=== PATIENT | female | born 1985 | race Caucasian/White ===

== ENCOUNTER 2017-09-07 21:10 | Inpatient (IN) | payer OTHER ==
[~2017-09-07] VITALS: Ht 157.5 cm; Wt 64.9 kg
[2017-09-07] MEDS ORDERED: LR 1,000 ML IV ONE (22:08)
[2017-09-07] MEDS ORDERED: LR 1,000 ML IV SCH (22:08)
[2017-09-07] MEDS ORDERED: FENT2mCg/mL-ROPIVA0.2%/NS EPID 150 ML EP SCH (22:40)
[2017-09-07] MEDS ORDERED: fentaNYL CITRATE/PF 100 MCG/2 ML AMP ONE (22:40)
[2017-09-07 22:42] LABS: BASOPHILS # (AUTO) 0.2 K/uL (0.0-0.2); BASOPHILS % (AUTO) 1.7 % (0.0-2.0); EOSINOPHILS # (AUTO) 0.1 K/uL (0.0-0.4); EOSINOPHILS % (AUTO) 1.3 % (0.0-4.0); HEMATOCRIT 38.3 % (36-48); LYMPHOCYTES # (AUTO) 2.5 K/uL (1.0-5.5); LYMPHOCYTES % (AUTO) 21.7 % (20.5-51.5); MEAN CORPUSCULAR HEMOGLOBIN 29 pg (27-31); MEAN CORPUSCULAR HGB CONC 34 % (32-36); MEAN CORPUSCULAR VOLUME 85 fL (79.0-98.0); MONOCYTES # (AUTO) 0.8 K/uL (0.0-1.0); MONOCYTES % (AUTO) 6.6 % (1.7-9.3); NEUTROPHILS # (AUTO) 7.8 K/uL (1.8-7.7); NEUTROPHILS % (AUTO) 68.7 % (40.0-70.0); PLATELET COUNT (AUTO) 211 K/uL (130-430); RED BLOOD CELL COUNT(AUTO) 4.49 MIL/uL (4.2-6.2); WHITE BLOOD COUNT (AUTO) 11.4 K/uL (4.8-10.8)
[2017-09-07] MEDS ORDERED: OXYTOCIN/NORMAL SALINE 1,000 ML IV ONE (23:24)
[2017-09-08] MEDS ORDERED: OXYTOCIN/NORMAL SALINE 1,000 ML IV ONE (00:31)
[2017-09-08] MEDS ORDERED: OXYTOCIN/NORMAL SALINE 1,000 ML IV SCH (00:31)
[2017-09-08] MEDS ORDERED: OXYCODONE/ACETAMINOPHEN 5-325 TABLET PO PRN ×2 (00:45)
[2017-09-08] MEDS ORDERED: RHO(D) IMMUNE GLOBULIN/MALTOSE 1500 UNITS/1.3 ML (WINHRO) IM PRN (00:45)
[2017-09-08] MEDS ORDERED: GLYCERIN/WITCH HAZEL (TUCKS PADS) TP PRN (00:45)
[2017-09-08] MEDS ORDERED: ANUSOL 1 EA SUPP.RECT (PREPARATION H) RC PRN (00:45)
[2017-09-08] MEDS ORDERED: SENNOSIDES/DOCUSATE SODIUM 1 TAB TABLET(SENOKOT-S) PO PRN (00:45)
[2017-09-08] MEDS ORDERED: DERMOPLAST SPRAY TP PRN (00:45)
[2017-09-08] MEDS ORDERED: DIPH-TET-PERTUS Vaccine 0.5 ML VIAL (ADACEL) I.M. PRN (00:45)
[2017-09-08] MEDS ORDERED: METHYLERGONOVINE MALEATE 0.2 MG TABLET PO PRN (00:45)
[2017-09-08] MEDS ORDERED: LANOLIN 7 GM OINT. TP PRN (00:45)
[2017-09-08] MEDS ORDERED: HYDROcodone/ACETAMIN 5-325 MG TAB (NORCO/ VICODIN) PO PRN (00:45)
[2017-09-08] MEDS ORDERED: DOCUSATE SODIUM 100 MG CAPSULE PO PRN (00:45)
[2017-09-08] MEDS ORDERED: HYDROCORTISONE 0.5%, 28.35 GM TOPICAL CREAM TP PRN (00:45)
[2017-09-08] MEDS ORDERED: MEASLES,MUMPS&RUBELLA VACC/PF 12500 UNIT/0.5 ML VIAL SUBQ PRN (00:45)
[2017-09-08] MEDS: IBUPROFEN 600 MG TABLET PO SCH ×2 (06:00→11:57)
[2017-09-08] MEDS ORDERED: LIDOCAINE MPF 2% 20 MG/1 ML, 5 ML VIAL INH ONE (07:00)
[2017-09-08] MEDS ORDERED: LIDOCAINE MPF 1% 50 MG/5 ML AMP INJ ONE (07:00)
[2017-09-08 07:26] VITALS: BP_SYST 117
[2017-09-08] MEDS ORDERED: TEMAZEPAM 15 MG CAPSULE PO PRN (21:00)
[2017-09-09] MEDS: IBUPROFEN 600 MG TABLET PO SCH ×4 (00:20→17:52)
[2017-09-09 07:02] LABS: BASOPHILS % (AUTO) 0.2 % (0.0-2.0); EOSINOPHILS # (AUTO) 0.2 K/uL (0.0-0.4); EOSINOPHILS % (AUTO) 1.6 % (0.0-4.0); HEMATOCRIT 34.3 % (36-48); LYMPHOCYTES # (AUTO) 2.7 K/uL (1.0-5.5); LYMPHOCYTES % (AUTO) 25.2 % (20.5-51.5); MEAN CORPUSCULAR HEMOGLOBIN 28 pg (27-31); MEAN CORPUSCULAR HGB CONC 32 % (32-36); MEAN CORPUSCULAR VOLUME 87 fL (79.0-98.0); MONOCYTES # (AUTO) 0.5 K/uL (0.0-1.0); NEUTROPHILS # (AUTO) 7.3 K/uL (1.8-7.7); PLATELET COUNT (AUTO) 183 K/uL (130-430); RED BLOOD CELL COUNT(AUTO) 3.95 MIL/uL (4.2-6.2); RED CELL DISTRIBUTION WIDTH 12.2 % (9.0-15.0); WHITE BLOOD COUNT (AUTO) 10.7 K/uL (4.8-10.8)
[2017-09-10] MEDS: IBUPROFEN 600 MG TABLET PO SCH ×2 (00:07→05:47)
== END 2017-09-10 13:07 | disposition home or self-care (01) | DRG 775 ==
LOC: SPU 21:10 → OBSVTOIN 22:00
PROVIDERS: ADMIT Specialist; ATTEND Specialist
PROC: 10E0XZZ Delivery of Products of Conception, External Approach (ICD-10-PCS; principal; 2017-09-08)
PROC: 3E0R3BZ Introduction of Anesthetic Agent into Spinal Canal, Percutaneous Approach (ICD-10-PCS; 2017-09-08)
PROC: 00HU33Z Insertion of Infusion Device into Spinal Canal, Percutaneous Approach (ICD-10-PCS; 2017-09-08)
DX: O60.14X0 Preterm labor third trimester with preterm delivery third trimester, not applicable or unspecified (principal); Z37.0 Single live birth; Z3A.39 39 weeks gestation of pregnancy
CPT/HCPCS: 36415; 81002-TC; 85025; 86592; 86886; 86900; 86901; 90715; G0378; J2001; J2590; J3010; J7120

== ENCOUNTER 2020-10-14 20:37 | Observation (INO) | payer OTHER ==
[2020-10-14] MEDS ORDERED: NACL 0.9% 1,000 ML IV ONE (21:00)
[2020-10-14] MEDS ORDERED: ACETAMINOPHEN 500 MG TABLET PO ONE (21:00)
[2020-10-14 22:14] LABS: BILIRUBIN,URINE NEGATIVE (NEGATIVE); BLOOD, URINE NEGATIVE (NEGATIVE); COLOR,URINE YELLOW (YELLOW); GLUCOSE,URINE NEGATIVE (NEGATIVE); KETONES,URINE NEGATIVE (NEGATIVE); LEUKOCYTE ESTERASE ,URINE TRACE (NEGATIVE); NITRITE, URINE NEGATIVE (NEGATIVE); PROTEIN URINE NEGATIVE (NEGATIVE); UROBILINOGEN,URINE 0.2 (0.2-1.0)
[2020-10-14 22:24] LABS: CLARITY/URINE SLIGHTLY HAZY (CLEAR)
[2020-10-14 22:28] LABS: BACTERIA,URINE FEW /HPF (None Seen); MUCUS,URINE None Seen /LPF (None Seen); RBC,URINE NONE SEEN /HPF (0-3)
== END 2020-10-14 23:00 | disposition home or self-care (01) ==
LOC: SPU 20:50 → EDSTATUS 21:05
PROVIDERS: ADMIT Specialist; ATTEND Specialist
DX: O26.852 Spotting complicating pregnancy, second trimester (principal); Z3A.16 16 weeks gestation of pregnancy; Z79.899 Other long term (current) drug therapy
CPT/HCPCS: 81000; 87086; G0378